=== PATIENT | male | born 1960 | race Caucasian/White ===

== ENCOUNTER 2016-03-06 16:20 | Emergency (ER) | payer OTHER ==
[~2016-03-06 16:20] MED LIST: /CIPR75TA PO; /ESOM40CA OR; CELE20TA; COLA100C2 OR; DESYREL PO; FLAG500T PO; LISI5TAB OR; MELOPOW PO; NAPR-239; NAPR375T; PERC5TAB8; PERC7.5T8 PO; PRIN5TAB PO; THYR60TA OR; TRAM50TA2 OR; TRAZ50TA; TRAZADONE PO; VICO5TAB; VITA100T; VITAMIN B COMPLE1 OR; VOLT1GEL EX
[2016-03-06] MEDS ORDERED: IBUPROFEN 400 MG TAB As Ordered ONE (19:34)
[2016-03-06 20:12] LABS: BASO # 0.1 K/mm3 (0.0-0.2); BASO % 1.1 % (0.0-1.0); EOS % 0.7 % (0.0-3.0); LARGE UNSTAINED CELL # 0.1 K/mm3 (0.0-0.4); LARGE UNSTAINED CELL % 1.9 % (0.0-4.0); LYMPH # 1.5 K/mm3 (1.5-4.5); LYMPH % 19.4 % (24.0-44.0); MEAN CORPUSCULAR HEMOGLOBIN 33.8 pg (27.0-33.0); MEAN CORPUSCULAR VOLUME 102.2 fl (80.0-96.0); MONO # 0.4 K/mm3 (0.0-0.8); MONO % 5.2 % (0.0-5.0); NEUTROPHILS # 5.1 K/mm3 (1.8-7.7); NEUTROPHILS % 71.8 % (36.0-66.0); PLATELET COUNT, AUTOMATED 129 k/mm3 (150-450); RED CELL DISTRIBUTION WIDTH 14.1 % (11.5-14.5); WHITE BLOOD COUNT 7.1 K/mm3 (4.0-10.0)
[2016-03-06 20:21] LABS: INR 0.89
--- NOTE | 2016-03-06 20:52 | REPUSA ---
Clinical statement: Pain, swelling. Findings: Venous Doppler imaging of the right upper extremity was performed. The internal jugular vei n compresses normally and demonstrates normal color Doppler flow. Normal venous wave forms are seen w ithin the subclavian vein. The axillary, brachial, basilic, and cephalic veins compress normally and demonstrate normal color Doppler flow. Normal augmentation is seen. A large complex fluid collection is seen in the right upper extremity. Impression: No evidence of deep vein thrombosis in the right upper extremity. Large hematoma in the r ight upper extremity noted.
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
--- NOTE | 2016-03-06 22:11 | EDDOCDS ---
Physician Documentation [facility] Name: Chucho Mercado Age: 55 yrs Sex: Male : 1960 Arrival Date: 03/06/2016 Time: 16:20 Bed PR Private MD: Disposition: 03/06/16 21:54 Discharged to Home/Self Care. Impression: Unspecified superficial injury of right shoulder, Other and unspecified soft tissue disorders, not elsewhere classified - RIGHT BICEP HEMATOMA. - Condition is Stable. - Discharge Instructions: Hematoma, Shoulder Pain. - Prescriptions for Tylenol- Codeine #3 300-30 mg Oral Tablet - take 2 tablets by ORAL route every 6 hours As needed MDD: 4 tabs; 20 tablet. - Medication Reconciliation, Local Pharmacy Hours form. - Follow up: [facility]; When: 2 - 3 days; Reason: Recheck today's complaints, Continuance of care. - Problem is new. - Symptoms have improved. - Notes: USE WARM PACK TO BRUISE, USE PAIN MEDICATION INSTRUTCED, CALL [facility] TOMORROW FOR FOLLOW UP Historical: - Allergies: No known drug Allergies; - Home Meds: 1. trazodone 100 mg Oral tab nightly 2. lisinopril 40 mg Oral tab 1 tab once daily 3. meloxicam oral Unknown oral once daily 4. Flexeril 10 mg Oral tab daily - PMHx: Hypertension; Arthritis; Anxiety; Depression; - PSHx: Carpal Tunnel Repair- Bilateral; Carpal Tunnel Repair; bowel surgery; chest tube right lung; - Social history: Smoking status: Patient uses tobacco products, heavy tobacco smoker. No barriers to communication noted, The patient speaks fluent Brazilian. - : The pt / caregiver states he / she is not on anticoagulants. Home medication list is obtained from the patient, [employer] import data. - Exposure Risk Screening:: None identified. Vital Signs: 03/06 16:22 BP 161 / 86; Pulse 101; Resp 16; Temp 98(O); Pulse Ox 100% ; Weight 61.23 kg / 134.99 cmb lbs; Height 5 ft. 8 in. (172.72 cm); Pain 7/10; 22:06 BP 150 / 90; Pulse 92; Resp 18; Temp 100.3(TE); Pulse Ox 98% on R/A; Pain 6/10; ar3 16:22 Body Mass Index 20.53 (61.23 kg, 172.72 cm) cmb MDM: 19:21 Ibuprofen 400 mg PO once ordered. ck7 19:22 CBC with Diff Ordered. EDMS 19:22 Pt & Aptt Ordered. EDMS 19:22 Shoulder, Complete Ordered. EDMS 19:22 US Upper Extremity R/O DVT Ordered. EDMS 20:59 CBC with Diff Reviewed. ck7 20:59 Pt & Aptt Reviewed. ck7 22:10 US Upper Extremity R/O DVT Reviewed. ck7 Administered Medications: 20:10 Drug: Ibuprofen 400 mg [ibuprofen 400 mg tablet (1 tabs)] Route: PO; mb9 Signatures: Dispatcher [employer] Cindy Conley RN RN kcs Kwaczala, Christopher, RPA-C RPA-Cck7 Michael Camilo RN RN mb9 ABHIJIT
--- NOTE | 2016-03-06 22:54 | REP ---
RIGHT SHOULDER, THREE VIEWS: HISTORY: Swelling. COMPARISON: 05/14/2012. There is narrowing of the joint spaces. A small ossified density is present inferior to the glenoid. This may represent ligamentous or tendon calcification. A large osteophyte is present on the superior aspect of the clavicle. There are old healed rib fractures of the right 6th through 9th ribs. IMPRESSION: Degenerative change as described above. Signed by Bryn Mulligan MD 03/07/2016 08:21 A
--- NOTE | 2016-03-08 23:11 | EDDOCDS ---
Physician Documentation [facility] Name: Chucho Mercado Age: 55 yrs Sex: Male : 1960 Arrival Date: 03/06/2016 Time: 16:20 Bed PR Private MD: Disposition: 03/06/16 21:54 Discharged to Home/Self Care. Impression: Unspecified superficial injury of right shoulder, Other and unspecified soft tissue disorders, not elsewhere classified - RIGHT BICEP HEMATOMA. - Condition is Stable. - Discharge Instructions: Hematoma, Shoulder Pain. - Prescriptions for Tylenol- Codeine #3 300-30 mg Oral Tablet - take 2 tablets by ORAL route every 6 hours As needed MDD: 4 tabs; 20 tablet. - Medication Reconciliation, Local Pharmacy Hours form. - Follow up: [facility]; When: 2 - 3 days; Reason: Recheck today's complaints, Continuance of care. - Problem is new. - Symptoms have improved. - Notes: USE WARM PACK TO BRUISE, USE PAIN MEDICATION INSTRUTCED, CALL [facility] TOMORROW FOR FOLLOW UP Historical: - Allergies: No known drug Allergies; - Home Meds: 1. trazodone 100 mg Oral tab nightly 2. lisinopril 40 mg Oral tab 1 tab once daily 3. meloxicam oral Unknown oral once daily 4. Flexeril 10 mg Oral tab daily - PMHx: Hypertension; Arthritis; Anxiety; Depression; - PSHx: Carpal Tunnel Repair- Bilateral; Carpal Tunnel Repair; bowel surgery; chest tube right lung; - Social history: Smoking status: Patient uses tobacco products, heavy tobacco smoker. No barriers to communication noted, The patient speaks fluent Grenadian. - : The pt / caregiver states he / she is not on anticoagulants. Home medication list is obtained from the patient, [employer] import data. - Exposure Risk Screening:: None identified. Vital Signs: 03/06 16:22 BP 161 / 86; Pulse 101; Resp 16; Temp 98(O); Pulse Ox 100% ; Weight 61.23 kg / 134.99 cmb lbs; Height 5 ft. 8 in. (172.72 cm); Pain 7/10; 22:06 BP 150 / 90; Pulse 92; Resp 18; Temp 100.3(TE); Pulse Ox 98% on R/A; Pain 6/10; ar3 16:22 Body Mass Index 20.53 (61.23 kg, 172.72 cm) cmb MDM: 19:21 Ibuprofen 400 mg PO once ordered. ck7 19:22 CBC with Diff Ordered. EDMS 19:22 Pt & Aptt Ordered. EDMS 19:22 Shoulder, Complete Ordered. EDMS 19:22 US Upper Extremity R/O DVT Ordered. EDMS 20:59 CBC with Diff Reviewed. ck7 20:59 Pt & Aptt Reviewed. ck7 22:10 US Upper Extremity R/O DVT Reviewed. ck7 03/07 11:15 T-Sheet-- Draft Copy was scanned into [employer] and attached to record. gb Administered Medications: 03/06 20:10 Drug: Ibuprofen 400 mg [ibuprofen 400 mg tablet (1 tabs)] Route: PO; mb9 Signatures: Dispatcher [employer] Cindy Conley RN RN kcs Barnhardt, Gloria, Reg Reg gb Attila Self, RPA-C RPA-Cck7 Michael Camilo RN RN mb9 The chart was reviewed and I authenticate all verbal orders and agree with the evaluation and treatment provided.Attachments: 03/07 11:15 T-Sheet-- Draft Copy gb Chart Complete MTDD
--- NOTE | 2016-03-08 23:11 | EDDOCDS ---
Physician Documentation [facility] Name: Chucho Mercado Age: 55 yrs Sex: Male : 1960 Arrival Date: 03/06/2016 Time: 16:20 Bed PR Private MD: Disposition: 03/06/16 21:54 Discharged to Home/Self Care. Impression: Unspecified superficial injury of right shoulder, Other and unspecified soft tissue disorders, not elsewhere classified - RIGHT BICEP HEMATOMA. - Condition is Stable. - Discharge Instructions: Hematoma, Shoulder Pain. - Prescriptions for Tylenol- Codeine #3 300-30 mg Oral Tablet - take 2 tablets by ORAL route every 6 hours As needed MDD: 4 tabs; 20 tablet. - Medication Reconciliation, Local Pharmacy Hours form. - Follow up: [facility]; When: 2 - 3 days; Reason: Recheck today's complaints, Continuance of care. - Problem is new. - Symptoms have improved. - Notes: USE WARM PACK TO BRUISE, USE PAIN MEDICATION INSTRUTCED, CALL [facility] TOMORROW FOR FOLLOW UP Historical: - Allergies: No known drug Allergies; - Home Meds: 1. trazodone 100 mg Oral tab nightly 2. lisinopril 40 mg Oral tab 1 tab once daily 3. meloxicam oral Unknown oral once daily 4. Flexeril 10 mg Oral tab daily - PMHx: Hypertension; Arthritis; Anxiety; Depression; - PSHx: Carpal Tunnel Repair- Bilateral; Carpal Tunnel Repair; bowel surgery; chest tube right lung; - Social history: Smoking status: Patient uses tobacco products, heavy tobacco smoker. No barriers to communication noted, The patient speaks fluent Polish. - : The pt / caregiver states he / she is not on anticoagulants. Home medication list is obtained from the patient, [employer] import data. - Exposure Risk Screening:: None identified. Vital Signs: 03/06 16:22 BP 161 / 86; Pulse 101; Resp 16; Temp 98(O); Pulse Ox 100% ; Weight 61.23 kg / 134.99 cmb lbs; Height 5 ft. 8 in. (172.72 cm); Pain 7/10; 22:06 BP 150 / 90; Pulse 92; Resp 18; Temp 100.3(TE); Pulse Ox 98% on R/A; Pain 6/10; ar3 16:22 Body Mass Index 20.53 (61.23 kg, 172.72 cm) cmb MDM: 19:21 Ibuprofen 400 mg PO once ordered. ck7 19:22 CBC with Diff Ordered. EDMS 19:22 Pt & Aptt Ordered. EDMS 19:22 Shoulder, Complete Ordered. EDMS 19:22 US Upper Extremity R/O DVT Ordered. EDMS 20:59 CBC with Diff Reviewed. ck7 20:59 Pt & Aptt Reviewed. ck7 22:10 US Upper Extremity R/O DVT Reviewed. ck7 03/07 11:15 T-Sheet-- Draft Copy was scanned into [employer] and attached to record. gb Administered Medications: 03/06 20:10 Drug: Ibuprofen 400 mg [ibuprofen 400 mg tablet (1 tabs)] Route: PO; mb9 Signatures: Dispatcher [employer] Cindy Conley RN RN kcs Barnhardt, Gloria, Reg Reg gb Attila Self, RPA-C RPA-Cck7 Michael Camilo RN RN mb9 The chart was reviewed and I authenticate all verbal orders and agree with the evaluation and treatment provided.Attachments: 03/07 11:15 T-Sheet-- Draft Copy gb Chart Complete MTDD
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
== END 2016-03-06 22:11 | disposition home or self-care (01) ==
LOC: M ED 16:20
DX: S40.021A Contusion of right upper arm, initial encounter (principal); Y04.0XXA Assault by unarmed brawl or fight, initial encounter; Y92.511 Restaurant or cafe as the place of occurrence of the external cause; Y93.89 Activity, other specified; Y99.8 Other external cause status; I10 Essential (primary) hypertension; M12.9 Arthropathy, unspecified; F41.9 Anxiety disorder, unspecified; F32.9 Major depressive disorder, single episode, unspecified; F17.210 Nicotine dependence, cigarettes, uncomplicated; Z79.899 Other long term (current) drug therapy

== ENCOUNTER → 2016-04-27 | Outpatient (CLI) | payer OTHER ==
[2016-04-27 15:45] LABS: BASO % 0.6 % (0.0-1.0); LYMPH % 19.4 % (24.0-44.0); MEAN CORPUSCULAR HEMOGLOBIN 34.2 pg (27.0-33.0); MEAN CORPUSCULAR HGB CONC 33.9 g/dl (32.0-36.5); MONO # 0.4 K/mm3 (0.0-0.8); MONO % 7.2 % (0.0-5.0); NEUTROPHILS # 3.6 K/mm3 (1.8-7.7); NEUTROPHILS % 69.6 % (36.0-66.0); RED CELL DISTRIBUTION WIDTH 12.7 % (11.5-14.5); WHITE BLOOD COUNT 5.2 K/mm3 (4.0-10.0)
[2016-04-27 16:20] LABS: ALBUMIN/GLOBULIN RATIO 1.14 (1.00-1.93); ALKALINE PHOSPHATASE 75 U/L (45-117); ALT/SGPT 59 U/L (12-78); ANION GAP 10 MEQ/L (8-16); AST/SGOT 70 U/L (15-37); BLOOD UREA NITROGEN 6 MG/DL (7-18); CALCIUM LEVEL 8.9 MG/DL (8.5-10.1); CARBON DIOXIDE LEVEL 29 MEQ/L (21-32); CHLORIDE LEVEL 100 MEQ/L (98-107); CHOLESTEROL LEVEL 230 MG/DL (<200); CREATININE FOR GFR 0.94 MG/DL (0.70-1.30); FREE T4 0.76 NG/DL (0.76-1.46); GLOMERULAR FILTRATION RATE > 60.0 (>56); GLUCOSE, FASTING 100 MG/DL (70-105); POTASSIUM SERUM 4.2 MEQ/L (3.5-5.1); SODIUM LEVEL 139 MEQ/L (136-145); TOTAL PROTEIN 7.5 GM/DL (6.4-8.2); TRIGLYCERIDES LEVEL 52 MG/DL (<150)
--- NOTE | 2016-04-27 17:06 | ECGEPIP ---
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 Electronically Signed On 04-27-2016 16:55:16 EST by Darian Stone
--- NOTE | 2016-05-01 08:24 | REP ---
Chest two views HISTORY: Shortness of breath Comparison: None The lungs are clear. The heart is normal in size. The pulmonary vasculature is normal in appearance. There are old healed bilateral rib fractures. IMPRESSION: No acute disease. Signed by Bryn Mulligan MD 05/01/2016 08:46 A
== END ==
LOC: M LAB 14:39
PROVIDERS: ATTEND Nurse Practitioner Adult Health
DX: R06.00 Dyspnea, unspecified (principal)

== ENCOUNTER 2016-05-16 11:38 | Emergency (ER) | payer OTHER ==
[~2016-05-16] VITALS: Ht 172.7 cm; Wt 63.5 kg
[~2016-05-16 11:38] MED LIST changes: -ACETYLCHOLINE OPHTH SOLN 1% 2ML As Ordered ONE; -BALANCED SALT IRRIGATION SOLUTION 500ML BAG (FOR OR EYE MACHINE) As Ordered ONE; -BSS with VANC/TOB/EPI for EYE CASES IR ONE; -CEFUROXIME 1MG/0.1ML INTRACAMERAL INJ As Ordered ONE; -CYCLOPENTOLATE 2% OPHTH SOLN OD ONE; -HEALON DUET (HEALON 10MG/ML 0.55ML & HEALON ENDOCOAT 30MG/ML 0.85ML) As Ordered ONE; -LIDOCAINE 1% SDV 5 ML VIAL As Ordered ONE; -LIDOCAINE 4% INJ 5 ML AMP OU ONE; +LORazepam 2 MG/ML VIAL (J2060) IV STA; -OFLOXACIN 0.3 % (OCUFLOX) OPTH SOL 5ML OD ONE; +ONDANSETRON 4MG/2ML VIAL (J2405) IV ONE; -OXAZ30CA2 PO; -PHENYLEPHRINE 2.5% OPHTH SOL 2ML As Ordered ONE; -PHENYLEPHRINE 2.5% OPHTH SOL 2ML OD ONE; -POVIDONE-IODINE 5% OPHTH PREP SOL 30ML As Ordered ONE; -TROPICAMIDE 1% OPHTH SOLN 2 ML OD ONE
[2016-05-16 11:55] LABS: BASO % 0.6 % (0.0-1.0); EOS % 1.1 % (0.0-3.0); LARGE UNSTAINED CELL # 0.1 K/mm3 (0.0-0.4); LYMPH # 0.6 K/mm3 (1.5-4.5); LYMPH % 15.5 % (24.0-44.0); MEAN CORPUSCULAR HGB CONC 34.1 g/dl (32.0-36.5); MEAN CORPUSCULAR VOLUME 99.7 fl (80.0-96.0); MONO # 0.3 K/mm3 (0.0-0.8); MONO % 8.5 % (0.0-5.0); NEUTROPHILS # 2.9 K/mm3 (1.8-7.7); NEUTROPHILS % 72.3 % (36.0-66.0); PLATELET COUNT, AUTOMATED 101 k/mm3 (150-450); RED CELL DISTRIBUTION WIDTH 12.9 % (11.5-14.5)
[2016-05-16 12:13] LABS: ALBUMIN 3.8 GM/DL (3.2-5.2); ALBUMIN/GLOBULIN RATIO 1.23 (1.00-1.93); ALKALINE PHOSPHATASE 68 U/L (45-117); ALT/SGPT 46 U/L (12-78); ANION GAP 10 MEQ/L (8-16); AST/SGOT 70 U/L (15-37); BILIRUBIN,DIRECT 0.2 MG/DL (0.0-0.2); BILIRUBIN,TOTAL 0.6 MG/DL (0.2-1.0); BLOOD UREA NITROGEN 5 MG/DL (7-18); CALCIUM LEVEL 8.7 MG/DL (8.5-10.1); CARBON DIOXIDE LEVEL 28 MEQ/L (21-32); CHLORIDE LEVEL 103 MEQ/L (98-107); CREATININE FOR GFR 0.85 MG/DL (0.70-1.30); GLOMERULAR FILTRATION RATE > 60.0 (>56); GLUCOSE, FASTING 97 MG/DL (70-105); POTASSIUM SERUM 4.8 MEQ/L (3.5-5.1); SODIUM LEVEL 141 MEQ/L (136-145); TOTAL PROTEIN 6.9 GM/DL (6.4-8.2)
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
[2016-05-16] MEDS ORDERED: OXAZEPAM 15 MG CAP PO ONE (12:30)
[2016-05-16] MEDS ORDERED: OXAZ30CA2 PO (14:15)
[2016-05-16 15:16] VITALS: BP 145/90
--- NOTE | 2016-05-18 08:40 | ECGEPIP ---
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
== END 2016-05-16 15:19 | disposition home or self-care (01) ==
LOC: M ED 13:32
DX: F10.239 Alcohol dependence with withdrawal, unspecified (principal); I10 Essential (primary) hypertension; F33.9 Major depressive disorder, recurrent, unspecified; G56.00 Carpal tunnel syndrome, unspecified upper limb; Z79.899 Other long term (current) drug therapy
CPT/HCPCS: 36415; 71020; 80048; 80076; 82550; 82553; 85025; 93005; 93041; 94760; 96374; 96375; 99285; J2060; J2405

== ENCOUNTER → 2016-05-16 | Day surgery (SDC) | payer OTHER ==
[~2016-05-16] VITALS: Ht 172.7 cm; Wt 63.5 kg
[~2016-05-16] MED LIST changes: +ACET-71 PO; +ACETYLCHOLINE OPHTH SOLN 1% 2ML As Ordered ONE; +ACUV0.45 OP; +BALANCED SALT IRRIGATION SOLUTION 500ML BAG (FOR OR EYE MACHINE) As Ordered ONE; +BSS with VANC/TOB/EPI for EYE CASES IR ONE; +CEFUROXIME 1MG/0.1ML INTRACAMERAL INJ As Ordered ONE; +CYCL10TA PO; +CYCLOPENTOLATE 2% OPHTH SOLN OD ONE; +HEALON DUET (HEALON 10MG/ML 0.55ML & HEALON ENDOCOAT 30MG/ML 0.85ML) As Ordered ONE; +LIDOCAINE 1% SDV 5 ML VIAL As Ordered ONE; +LIDOCAINE 4% INJ 5 ML AMP OU ONE; +LISI40TAB PO; +OFLOXACIN 0.3 % (OCUFLOX) OPTH SOL 5ML OD ONE; +OXAZ30CA2 PO; +PHENYLEPHRINE 2.5% OPHTH SOL 2ML As Ordered ONE; +PHENYLEPHRINE 2.5% OPHTH SOL 2ML OD ONE; +POVIDONE-IODINE 5% OPHTH PREP SOL 30ML As Ordered ONE; +SUCR1TA PO; +TOBR0.3S OP; +TRAM50TA2 PO; +TRAZ100T4 PO; +TROPICAMIDE 1% OPHTH SOLN 2 ML OD ONE
== END | disposition home or self-care (01) ==
LOC: M SDC 09:51
PROVIDERS: ATTEND Ophthalmology
DX: H26.9 Unspecified cataract (principal); Z53.09 Procedure and treatment not carried out because of other contraindication

== ENCOUNTER 2017-05-27 22:12 | Emergency (ER) | payer OTHER | END 2017-05-27 23:30 | disposition left against medical advice (07) | LOC: M ED 22:12 | DX: Z53.29 Procedure and treatment not carried out because of patient's decision for other reasons (principal) ==

== ENCOUNTER 2018-09-28 22:43 | Emergency (ER) | payer OTHER ==
[~2018-09-28 22:43] MED LIST changes: -/ESOM40CA OR; -ACET-71 PO; +ACET1TAB16 PO; +LISI40TA PO; -LISI40TAB PO; -LORazepam 2 MG/ML VIAL (J2060) IV STA; +NEXI1CAP3 OR; -ONDANSETRON 4MG/2ML VIAL (J2405) IV ONE; +OXAZ30CA2 PO; +TRAZ-163 PO; -TRAZ100T4 PO
[2018-09-28 22:49] VITALS: BP 168/140
[2018-09-28] MEDS ORDERED: TETRACAINE 0.5% OPHTH SOLN 4ML OS ONE (23:00)
[2018-09-28] MEDS ORDERED: PRED1SUS2 OP (23:06)
== END 2018-09-28 23:33 | disposition home or self-care (01) ==
LOC: M ED 22:43
DX: H57.89 Other specified disorders of eye and adnexa (principal); I10 Essential (primary) hypertension; M54.9 Dorsalgia, unspecified; Z72.0 Tobacco use; Z79.899 Other long term (current) drug therapy

== ENCOUNTER 2020-06-09 22:28 | Emergency (ER) | payer OTHER ==
[~2020-06-09] VITALS: Ht 172.7 cm; Wt 65.9 kg
[~2020-06-09 22:28] MED LIST changes: +CYCL-707 PO; -CYCL10TA PO; -LISI40TA PO; +LISI40TA4 PO; +PRED1SUS2 OP; -TRAZ-163 PO; +TRAZ-257 PO
[2020-06-09 22:29] VITALS: BP 190/120
[2020-06-10] MEDS ORDERED: OMEP-218 (00:24)
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
== END 2020-06-10 04:54 | disposition home or self-care (01) ==
LOC: M ED 22:28
DX: S02.2XXA Fracture of nasal bones, initial encounter for closed fracture (principal); Y04.8XXA Assault by other bodily force, initial encounter; Y92.410 Unspecified street and highway as the place of occurrence of the external cause; F10.10 Alcohol abuse, uncomplicated; F33.9 Major depressive disorder, recurrent, unspecified; Z79.899 Other long term (current) drug therapy; F17.210 Nicotine dependence, cigarettes, uncomplicated

== ENCOUNTER 2020-12-01 13:04 | Inpatient (IN) | payer OTHER ==
[~2020-12-01] VITALS: Ht 172.7 cm; Wt 61.4 kg
[~2020-12-01 13:04] MED LIST changes: +OMEP-218 PO
[2020-12-01] MEDS ORDERED: SILV50CR TOP (13:48)
[2020-12-01] MEDS ORDERED: BACITRACIN OINTMENT 30GM TUBE TOP STA (13:49)
[2020-12-01] MEDS ORDERED: ONDANSETRON 4MG/2ML VIAL IV ONE (13:50)
[2020-12-01] MEDS ORDERED: MORPHINE 4 MG/ML 1ML VIAL/SYRINGE (J2270) IV ONE (13:50)
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
[2020-12-01 15:21] LABS: BASO % 0.5 % (0.0-1.0); EOS % 0.2 % (0.0-3.0); HEMATOCRIT 50.8 % (42.0-52.0); HEMOGLOBIN 17.7 g/dl (13.5-17.5); LYMPH # 0.9 10^3/uL (1.5-5.0); MEAN CORPUSCULAR HEMOGLOBIN 34.2 pg (27.0-33.0); MEAN CORPUSCULAR HGB CONC 34.8 g/dl (32.0-36.5); MEAN CORPUSCULAR VOLUME 98.3 fl (80.0-96.0); MONO # 0.9 10^3/uL (0.0-0.8); MONO % 10.1 % (2.0-8.0); NEUTROPHILS # 6.9 10^3/uL (1.5-8.5); NEUTROPHILS % 78.6 % (36.0-66.0); PLATELET COUNT, AUTOMATED 154 10^3/uL (150-450); RED BLOOD COUNT 5.17 10^6/uL (4.30-6.10); WHITE BLOOD COUNT 8.8 10^3/uL (4.0-10.0)
[2020-12-01 15:45] LABS: ERYTHROCYTE SEDIMENTATION RATE 8 mm/hr (0-20)
[2020-12-01] MEDS ORDERED: LORazepam 2 MG TAB PO PRN (16:20)
[2020-12-01] MEDS ORDERED: PERCOCET 5MG/325MG TAB PO PRN (17:05)
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
[2020-12-01] MEDS: PERCOCET 5MG/325MG TAB PO PRN (17:15)
[2020-12-01] MEDS: NS 1,000 ML IV SCH (17:16)
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
[2020-12-01 17:57] LABS: RSV AMPLIFICATION NEGATIVE (NEGATIVE)
[2020-12-01] MEDS ORDERED: HOME MED LIST COMPLETE! XX SCH (18:15)
[2020-12-01] MEDS: PIPERACILLIN/TAZOBACTAM SOD 3.375 GM in D5W MINI-BAG PLUS 50 ML IV SCH (18:22)
[2020-12-01] MEDS: lisinopriL 40 MG TAB PO SCH ×2 (19:57→21:54)
[2020-12-01] MEDS ORDERED: traZODone 100 MG TAB PO SCH (21:00)
[2020-12-01] MEDS: SILVER SULFADIAZINE 1% CR 50 GM JAR TOP SCH (21:00)
[2020-12-01] MEDS: CYCLOBENZAPRINE 10MG TABLET PO SCH (21:53)
[2020-12-01] MEDS: THIAMINE 100 MG TAB PO SCH (21:54)
[2020-12-01 22:40] VITALS: BP 178/97
[2020-12-01 23:04] VITALS: BP 178/97
[2020-12-02] MEDS: PIPERACILLIN/TAZOBACTAM SOD 3.375 GM in D5W MINI-BAG PLUS 50 ML IV SCH ×3 (00:03→12:00)
[2020-12-02] MEDS: NS 1,000 ML IV SCH (03:10)
[2020-12-02] MEDS: PERCOCET 5MG/325MG TAB PO PRN ×3 (03:10→12:44)
[2020-12-02 06:09] VITALS: BP 117/92
[2020-12-02 06:38] VITALS: BP 117/92
[2020-12-02 06:42] LABS: HEMATOCRIT 42.8 % (42.0-52.0); MEAN CORPUSCULAR HGB CONC 34.3 g/dl (32.0-36.5); MEAN CORPUSCULAR VOLUME 99.1 fl (80.0-96.0); PLATELET COUNT, AUTOMATED 137 10^3/uL (150-450); RED BLOOD COUNT 4.32 10^6/uL (4.30-6.10); WHITE BLOOD COUNT 6.8 10^3/uL (4.0-10.0)
[2020-12-02 06:55] LABS: HEMOGLOBIN 14.7 g/dl (13.5-17.5)
[2020-12-02 07:06] LABS: ALBUMIN 2.6 GM/DL (3.2-5.2); ALT/SGPT 18 U/L (12-78); BILIRUBIN,TOTAL 1.1 MG/DL (0.2-1.0); BLOOD UREA NITROGEN 8 MG/DL (7-18); C REACTIVE PROTEIN QUANTITATIV 4.47 MG/DL (0.00-0.30); CALCIUM LEVEL 7.8 MG/DL (8.8-10.2); CARBON DIOXIDE LEVEL 30 MEQ/L (21-32); CHLORIDE LEVEL 100 MEQ/L (98-107); CREATININE FOR GFR 0.82 MG/DL (0.70-1.30); GLOMERULAR FILTRATION RATE > 60.0 (>49); GLUCOSE, FASTING 72 MG/DL (70-100); POTASSIUM SERUM 3.7 MEQ/L (3.5-5.1); SODIUM LEVEL 134 MEQ/L (136-145); TOTAL PROTEIN 5.6 GM/DL (6.4-8.2)
[2020-12-02 07:56] LABS: ERYTHROCYTE SEDIMENTATION RATE 15 mm/hr (0-20)
[2020-12-02] MEDS ORDERED: FOLIC ACID 1 MG TAB PO SCH (09:00)
[2020-12-02] MEDS ORDERED: OMEPRAZOLE 20 MG CAP PO SCH (09:00)
[2020-12-02] MEDS ORDERED: MULTIVITAMINS/MINERALS THERAP 1 TAB PO SCH (09:00)
[2020-12-02] MEDS ORDERED: THIA100TA PO (09:28)
[2020-12-02] MEDS ORDERED: PERCOCET PO (09:28)
[2020-12-02] MEDS ORDERED: FOLI1TAB11 PO (09:28)
[2020-12-02] MEDS ORDERED: VITMTA PO (09:28)
[2020-12-02] MEDS ORDERED: AUGM875T28 PO (09:30)
[2020-12-02] MEDS ORDERED: DOXY-350 PO (09:30)
[2020-12-02] MEDS: THIAMINE 100 MG TAB PO SCH (09:39)
[2020-12-02] MEDS: lisinopriL 40 MG TAB PO SCH (09:40)
[2020-12-02] MEDS: CYCLOBENZAPRINE 10MG TABLET PO SCH (09:40)
[2020-12-02] MEDS: SILVER SULFADIAZINE 1% CR 50 GM JAR TOP SCH (09:41)
[2020-12-02] MEDS ORDERED: FLUBLOK(EGG FREE)(QUAD)INFLUENZA VACC 0.5ML SYRINGE 18YRS & OLDER IM ONE (12:00)
[2020-12-02 14:00] VITALS: BP 137/69
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
== END 2020-12-02 15:24 | disposition home health service (06) | DRG 844 ==
LOC: EDBD 13:04 → M ED 13:04 → M ED INP 16:20 → ENRESERV 20:36 → M MS5PR 22:50
PROVIDERS: ADMIT Internal Medicine; ATTEND Internal Medicine
PROC: 0JBQ3ZZ Excision of Right Foot Subcutaneous Tissue and Fascia, Percutaneous Approach (ICD-10-PCS; principal; 2020-12-01)
DX: T25.211A Burn of second degree of right ankle, initial encounter (principal); I10 Essential (primary) hypertension; F17.210 Nicotine dependence, cigarettes, uncomplicated; F10.10 Alcohol abuse, uncomplicated; J44.9 Chronic obstructive pulmonary disease, unspecified; K21.9 Gastro-esophageal reflux disease without esophagitis; Z98.41 Cataract extraction status, right eye; Z98.42 Cataract extraction status, left eye; L03.115 Cellulitis of right lower limb; Z20.822 Contact with and (suspected) exposure to COVID-19; Z79.899 Other long term (current) drug therapy; Y93.89 Activity, other specified

== ENCOUNTER 2021-02-16 09:10 | Emergency (ER) | payer OTHER ==
[~2021-02-16 09:10] MED LIST changes: +AUGM875T28 PO; +DOXY-350 PO; +FOLI1TAB11 PO; +OMEP-173 PO; -OMEP-218 PO; +PERCOCET PO; +SILV50CR TOP; +THIA100TA PO; -TOBR0.3S OP; +TOBR0.3S10 OP; +VITMTA PO
[2021-02-16] MEDS ORDERED: NS 1,000 ML IV SCH (09:15)
[2021-02-16] MEDS ORDERED: LABETALOL 100MG/20ML VIAL As Ordered ONE (09:27)
[2021-02-16] MEDS ORDERED: LABETALOL 100MG/20ML VIAL IV STA ×2 (09:27→09:55)
[2021-02-16] MEDS ORDERED: levETIRAcetam INJection 1,000 MG in D5W 100 ML IV ONE ×2 (09:40→10:30)
[2021-02-16 09:47] LABS: BASO # 0.1 10^3/uL (0.0-0.2); BASO % 0.5 % (0.0-1.0); EOS % 0.1 % (0.0-3.0); HEMATOCRIT 46.4 % (42.0-52.0); HEMOGLOBIN 15.6 g/dl (13.5-17.5); LYMPH # 1.5 10^3/uL (1.5-5.0); LYMPH % 9.9 % (24.0-44.0); MEAN CORPUSCULAR HEMOGLOBIN 33.3 pg (27.0-33.0); MEAN CORPUSCULAR HGB CONC 33.6 g/dl (32.0-36.5); MEAN CORPUSCULAR VOLUME 99.1 fl (80.0-96.0); MONO # 0.9 10^3/uL (0.0-0.8); MONO % 5.8 % (2.0-8.0); NEUTROPHILS # 12.4 10^3/uL (1.5-8.5); NEUTROPHILS % 83.3 % (36.0-66.0); PLATELET COUNT, AUTOMATED 168 10^3/uL (150-450); RED BLOOD COUNT 4.68 10^6/uL (4.30-6.10); WHITE BLOOD COUNT 14.9 10^3/uL (4.0-10.0)
[2021-02-16] MEDS ORDERED: PROPOFOL 1,000 MG/100 ML VIAL As Ordered ONE (09:51)
[2021-02-16] MEDS ORDERED: propofoL 1,000 MG in IV 1 EA IV SCH (09:55)
[2021-02-16 10:09] LABS: OSMOLALITY SERUM 295 MOSM/KG (280-301)
[2021-02-16 10:14] LABS: ACETAMINOPHEN LEVEL < 2.0 UG/ML (10.0-30.0); ALBUMIN 3.9 GM/DL (3.2-5.2); ALT/SGPT 40 U/L (12-78); BILIRUBIN,DIRECT 0.3 MG/DL (0.0-0.2); BILIRUBIN,TOTAL 0.8 MG/DL (0.2-1.0); BLOOD UREA NITROGEN 6 MG/DL (7-18); CALCIUM LEVEL 9.3 MG/DL (8.8-10.2); CARBON DIOXIDE LEVEL 18 MEQ/L (21-32); CHLORIDE LEVEL 100 MEQ/L (98-107); CREATININE FOR GFR 0.95 MG/DL (0.70-1.30); ETHYL ALCOHOL (ETHANOL) 0.009 % (0.000-0.010); GLOMERULAR FILTRATION RATE > 60.0 (>49); GLUCOSE, FASTING 152 MG/DL (70-100); MAGNESIUM LEVEL 1.8 MG/DL (1.8-2.4); POTASSIUM SERUM 3.5 MEQ/L (3.5-5.1); SALICYLATE LEVEL 2.7 MG/DL (5.0-30.0); SODIUM LEVEL 137 MEQ/L (136-145); TOTAL PROTEIN 7.4 GM/DL (6.4-8.2)
[2021-02-16 10:18] LABS: RSV AMPLIFICATION NEGATIVE (NEGATIVE)
[2021-02-16] MEDS ORDERED: SODIUM CHLORIDE 3% 500 ML IV SCH (10:30)
[2021-02-16] MEDS ORDERED: LABETALOL HCL 200 MG in D5W 160 ML IV SCH (10:30)
[2021-02-16] MEDS ORDERED: REFRIGERATOR IV KEYS XX PRN (10:35)
[2021-02-16] MEDS ORDERED: MIDAZOLAM HCL 100 MG in D5W 80 ML IV SCH (10:35)
[2021-02-16] MEDS ORDERED: MANNITOL 25% 12.5 GM/50 ML VIAL (J2150) IV ONE (10:35)
[2021-02-16] MEDS ORDERED: MORPHINE 2 MG/ML 1ML VIAL (J2270) IV ONE (10:40)
[2021-02-16] MEDS ORDERED: LIDOCAINE 2% 5ML JELLY UROJET TOP ONE (10:40)
[2021-02-16 10:48] VITALS: BP 188/102
[2021-02-16] MEDS ORDERED: MANNITOL 25% 12.5 GM/50 ML VIAL (J2150) As Ordered ONE ×2 (10:48→10:57)
[2021-02-16] MEDS ORDERED: MIDAZOLAM INJ 2MG/2ML VIAL (J2250 PER 1MG) IV STA (10:51)
[2021-02-16 11:15] VITALS: BP 112/62
[2021-02-16 12:04] LABS: PROTHROMBIN TIME 13.6 SECONDS (12.7-14.5)
[2021-02-16 12:05] LABS: PARTIAL THROMBOPLASTIN TIME 29.2 SECONDS (25.9-37.0)
[2021-02-16 12:18] LABS: AMPHETAMINES LEVEL URINE NEGATIVE (NEGATIVE); BARBITURATES URINE NEGATIVE (NEGATIVE); BENZODIAZEPINES URINE POSITIVE (NEGATIVE); CANNABINOIDS URINE POSITIVE (NEGATIVE); COCAINE METABOLITE URINE NEGATIVE (NEGATIVE); METHADONE URINE NEGATIVE (NEGATIVE); OPIATES URINE POSITIVE (NEGATIVE); PHENCYCLIDINE URINE NEGATIVE (NEGATIVE)
== END 2021-02-16 11:25 | disposition short-term general hospital (02) ==
LOC: EDBD 09:10 → M ED 09:10
DX: I16.0 Hypertensive urgency (principal); I62.9 Nontraumatic intracranial hemorrhage, unspecified; F10.11 Alcohol abuse, in remission; Z79.899 Other long term (current) drug therapy; F17.210 Nicotine dependence, cigarettes, uncomplicated
CPT/HCPCS: 51702; 70450; 71045; 72125; 80048; 80076; 80143; 80307; 82077; 82140; 82550; 83735; 83930; 84443; 85025; 85610; 85730; 87631; 93005; 93041; 94760; 96374; 96375; 96376; 99285; J1953; J2150; J2270